=== PATIENT | male | born 1960 | race Two or more races ===

== ENCOUNTER 2025-02-07 10:23 | Outpatient (RCR) | payer MEDICARE, MEDICAID, SELFPAY ==
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
== END 2025-02-11 23:59 | disposition home or self-care (01) ==
LOC: CPTX 10:23
PROVIDERS: PCP Family Medicine; Referring Provider Family Medicine; Visit Provider Family Medicine
DX: M25.512 Pain in left shoulder (principal); M25.511 Pain in right shoulder; I10 Essential (primary) hypertension; E11.9 Type 2 diabetes mellitus without complications; S16.1XXD Strain of muscle, fascia and tendon at neck level, subsequent encounter; S20.211D Contusion of right front wall of thorax, subsequent encounter; S39.012D Strain of muscle, fascia and tendon of lower back, subsequent encounter; S29.019D Strain of muscle and tendon of unspecified wall of thorax, subsequent encounter; V89.2XXD Person injured in unspecified motor-vehicle accident, traffic, subsequent encounter; Z87.891 Personal history of nicotine dependence
CPT/HCPCS: 97162

== ENCOUNTER 2025-02-27 09:00 | Outpatient (RCR) | payer MEDICARE, MEDICAID, SELFPAY ==
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
== END 2025-03-13 23:59 | disposition home or self-care (01) ==
LOC: CPTX 09:00
PROVIDERS: PCP Family Medicine; Referring Provider Family Medicine; Visit Provider Family Medicine
DX: M25.512 Pain in left shoulder (principal); M25.511 Pain in right shoulder; S16.1XXD Strain of muscle, fascia and tendon at neck level, subsequent encounter; S20.211D Contusion of right front wall of thorax, subsequent encounter; S39.012D Strain of muscle, fascia and tendon of lower back, subsequent encounter; S29.019D Strain of muscle and tendon of unspecified wall of thorax, subsequent encounter; V89.2XXD Person injured in unspecified motor-vehicle accident, traffic, subsequent encounter; I10 Essential (primary) hypertension
CPT/HCPCS: 97110